=== PATIENT | female | born 1970 | race Caucasian/White ===

== ENCOUNTER 2018-01-09 07:45 | Day surgery (SDC) | payer MEDICAID ==
[~2018-01-09] VITALS: Ht 160 cm; Wt 86.2 kg
[2018-01-09 08:23] LABS: HCG,QUAL RESULT NEGATIVE (NEGATIVE)
[2018-01-09] MEDS ORDERED: LISI-600 PO (08:23)
[2018-01-09] MEDS ORDERED: LORA10TA7 PO (08:23)
[2018-01-09] MEDS ORDERED: OMEP20CA10 PO (08:23)
[2018-01-09] MEDS ORDERED: MEPERIDINE HCL/PF 25 MG/ML DISP.SYRIN IVP PRN (11:15)
[2018-01-09] MEDS ORDERED: fentaNYL CITRATE/PF 100 MCG/2 ML AMP IVP PRN (11:15)
[2018-01-09] MEDS ORDERED: HYDROmorphone 1 MG INJ. 1 MG/ML AMPUL IVP PRN (11:15)
[2018-01-09] MEDS ORDERED: ONDANSETRON HCL 4 MG/2 ML VIAL IVP ONE ×2 (11:15→11:45)
[2018-01-09] MEDS ORDERED: MIDAZOLAM HCL 5 MG/5 ML VIAL IVP PRN (11:15)
[2018-01-09] MEDS ORDERED: hydrALAZINE HCL 20 MG/ML VIAL IVP PRN (11:15)
[2018-01-09] MEDS ORDERED: NALOXONE HCL 0.4 MG/ML AMP (NARCAN) IVP ONE (11:15)
[2018-01-09] MEDS ORDERED: KETOROLAC TROMETHAMINE 30 MG VIAL IVP ONE ×2 (11:15→11:45)
[2018-01-09] MEDS ORDERED: DEXAMETHASONE SOD PHOSPHATE 4 MG/ML VIAL IVP ONE (11:45)
[2018-01-09] MEDS ORDERED: MIDAZOLAM HCL 5 MG/5 ML VIAL IVP ONE (11:45)
[2018-01-09] MEDS ORDERED: SEVOFLURANE 15 MIN GAS INH ONE (11:45)
[2018-01-09] MEDS ORDERED: OXYMETAZOLINE HCL 0.05% NASAL SPRAY NS ONE (11:45)
[2018-01-09] MEDS ORDERED: MEPERIDINE HCL/PF 100 MG/ML AMP IM ONE (11:45)
[2018-01-09] MEDS ORDERED: SUCCINYLCHOLINE CHLORIDE 20 MG/ML(QUELICIN) IVP ONE (11:45)
[2018-01-09] MEDS ORDERED: NS IRRIG SOLN 1000 ML IR ONE (11:45)
[2018-01-09] MEDS ORDERED: LIDOCAINE/EPI 1% 1:100000 20 ML VIAL INJ ONE (11:45)
[2018-01-09] MEDS ORDERED: fentaNYL CITRATE 250 MCG/5 ML AMP IV ONE (11:45)
[2018-01-09] MEDS ORDERED: LR 1,000 ML IV.SOLN IV ONE (11:45)
[2018-01-09 12:59] VITALS: BP_SYST 116
== END 2018-01-09 14:00 | disposition home or self-care (01) ==
LOC: SMU 07:45 → SDS 07:45
PROVIDERS: ATTEND Otolaryngology
DX: J38.2 Nodules of vocal cords (principal); I10 Essential (primary) hypertension; K21.9 Gastro-esophageal reflux disease without esophagitis; Z79.899 Other long term (current) drug therapy; Z88.0 Allergy status to penicillin; Z68.33 Body mass index [BMI] 33.0-33.9, adult
CPT/HCPCS: 31545; 84703; 88305; J0330; J1100; J1885; J2175; J2250; J2405; J3010; J7120; 88304